=== PATIENT | female | born 1995 | race Caucasian/White ===

== ENCOUNTER 2020-10-27 14:57 | Outpatient (REF) | payer BC, SELFPAY ==
[2020-10-28 02:21] LABS: CT PCR NOT DETECTED (Not Detect.); NG PCR NOT DETECTED (Not Detect.)
== END 2020-10-27 14:58 | disposition home or self-care (01) ==
LOC: HO.LAB 14:57
PROVIDERS: Visit Provider Advanced Practice Midwife
DX: Z11.3 Encounter for screening for infections with a predominantly sexual mode of transmission (principal); Z20.2 Contact with and (suspected) exposure to infections with a predominantly sexual mode of transmission
CPT/HCPCS: 87491; 87591

== ENCOUNTER 2021-06-09 15:06 | Outpatient (REF) | payer OTHER, SELFPAY ==
[2021-06-10 08:58] LABS: BV Int Neg Control Negative (Negative); BV Int Pos Control Positive (Positive)
[2021-06-10 10:53] LABS: CT PCR NOT DETECTED (Not Detect.); NG PCR NOT DETECTED (Not Detect.)
== END 2021-06-09 15:07 | disposition home or self-care (01) ==
LOC: HO.LAB 15:06
PROVIDERS: Visit Provider Advanced Practice Midwife
DX: Z01.419 Encounter for gynecological examination (general) (routine) without abnormal findings (principal); B37.3 Candidiasis of vulva and vagina; Z20.2 Contact with and (suspected) exposure to infections with a predominantly sexual mode of transmission
CPT/HCPCS: 87480; 87491; 87510; 87591; 87660

== ENCOUNTER 2021-10-31 15:18 | Outpatient (REF) | payer OTHER, SELFPAY ==
[2021-11-01 05:34] LABS: CT PCR NOT DETECTED (Not Detect.); NG PCR NOT DETECTED (Not Detect.)
[2021-11-01 13:12] LABS: BV Int Neg Control Negative (Negative); BV Int Pos Control Positive (Positive)
== END 2021-10-31 15:19 | disposition home or self-care (01) ==
LOC: HO.LAB 15:18
PROVIDERS: Visit Provider Advanced Practice Midwife
DX: Z01.419 Encounter for gynecological examination (general) (routine) without abnormal findings (principal); Z20.2 Contact with and (suspected) exposure to infections with a predominantly sexual mode of transmission; N89.8 Other specified noninflammatory disorders of vagina
CPT/HCPCS: 87480; 87491; 87510; 87591; 87660; 88142

== ENCOUNTER 2022-11-02 15:27 | Outpatient (REF) | payer OTHER, SELFPAY ==
[2022-11-03 01:10] LABS: CT PCR NOT DETECTED (Not Detect.); NG PCR NOT DETECTED (Not Detect.)
== END 2022-11-02 15:28 | disposition home or self-care (01) ==
LOC: HO.LNP 15:27
PROVIDERS: PCP Radiology Diagnostic Radiology; Visit Provider Advanced Practice Midwife
DX: Z20.2 Contact with and (suspected) exposure to infections with a predominantly sexual mode of transmission (principal)
CPT/HCPCS: 0353U

== ENCOUNTER 2024-01-03 09:49 | Outpatient (REF) | payer OTHER, SELFPAY ==
[2024-01-04 05:14] LABS: CT PCR NOT DETECTED (Not Detect.); NG PCR NOT DETECTED (Not Detect.)
[2024-01-04 11:36] LABS: Bacterial Vaginosis PCR POSITIVE (Negative); Candida Group PCR NOT DETECTED (Not Detect); Candida glab krusei PCR NOT DETECTED (Not Detect); Trichomonas vaginalis PCR NOT DETECTED (Not Detect)
== END 2024-01-03 09:50 | disposition home or self-care (01) ==
LOC: HO.LAB 09:49
PROVIDERS: PCP Radiology Diagnostic Radiology; Visit Provider Advanced Practice Midwife
DX: N89.8 Other specified noninflammatory disorders of vagina (principal); Z20.2 Contact with and (suspected) exposure to infections with a predominantly sexual mode of transmission
CPT/HCPCS: 0352U; 87491; 87591

== ENCOUNTER 2024-01-03 09:49 | Outpatient (AMB) | payer OTHER, SELFPAY ==
[2024-01-03 10:00] VITALS: BP 110/60; BMI 28.6
--- NOTE | 2024-01-03 10:00 | MHC.OFFVIS ---
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: No Information Interpreted: clinical only Stripe Marker: Stripe Marker Present Allergies No Known Allergies Allergy (Verified 01/03/24 10:01) salmon Allergy (Unknown, Uncoded 01/03/24 10:01) Unknown Medication List - Last Reconciled 01/03/24 by Shena Holliday CNM drospirenone-ethinyl estradiol 3-0.02 mg (Estelle (28)) TAKE 1 TABLET BY MOUTH EVERY DAY hydroxyzine HCl 10 mg PO TID PRN Is last menstrual period known: Yes Last menstrual period: 12/08/23 Do you need a note to return to daycare/school/sports/work: No HPI HPI 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 She normally sees Julia. She cites a long-term history of recurrent BV that she has reviewed many times in the past with Julia. She currently is following a regimen of treating when she feels she needs to or possibly weekly with boric acid capsules but she notices it recurs if she is not diligent about this she has very aware allowing air to her vulva she does not over use panty liners accept the day after the boric acid. She does not spend a lot of time in Spandex she wears either cotton or loose flowing clothes. It does not seem necessarily to be related to sexual activity though it started to occur more some years back in her history. She is on various methods of control in the past but has done best on these particular control pills but looks forward to when she can be without them but does not particularly plan on having a baby for the next 5 years she and her boyfriend just got engaged. 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 She works out though ?nothing crazy in the summer . COUNT INCLUDES THE [facility] Social History (Reviewed 01/03/24 @ 10:03 by Tony Pearson [facility]) Alcohol intake: current Alcohol intake frequency: a few times a month Patient Tobacco Use Status: Never used Tobacco Substance Use Type: Marijuana Sexual orientation: Straight/Heterosexual Gender identity: Female Female Reproductive History Menstrual Age of Menarche: 12 Duration of menses: 3-5 days Date of last menstrual period: 12/08/23 control method: pills Total pregnancies: 0 Date of last pap smear: 11/01/21 (negative) History of abnormal pap smear: No Physical Exam Vital Signs: Last Vital Signs BP 110/60 01/03/24 10:00 BMI result Body Mass Index 28.6 Const General: healthy appearing, comfortable, no acute distress, well developed and alert Nutritional Appearance: average body habitus Orientation/consciousness: patient oriented x3 Limitations: no limitations HEENT Head: Yes normocephalic Neck Neck: Yes normal visual inspection Chest Chest palpation & inspection: normal inspection of the chest Breast/axilla inspection: normal inspection of the breasts and normal inspection of the axillae Breast/axilla palpation: normal palpation of the breasts and normal palpation of the axillae Resp Effort & Inspection: normal respiratory effort GI Inspection: Yes normal to inspection, No Abdominal wall edema and No distended Palpation (GI): Soft to palpation and nontender Other: Limits vagina is and moist there is a normal whitish clearish heterogeneous discharge consistent with OCP use or 2nd half of menstrual cycle. Does not appear consistent with BV at this time cervix is nulliparous pink smooth mobile nontender extremely posterior uterus midposition to anteverted nontender not enlarged adnexa nontender not enlarged extremely good muscle tone. General: Yes bladder normal to palpation External Female Exam: normal external appearance and normal appearance of the urethra Speculum Exam - Vagina: normal appearance of the vagina, normal palpation and normal vaginal discharge Speculum Exam - Cervix: normal appearance of the cervix, normal palpation and nontender Bimanual exam- vagina & uterus: normal bimanual exam, normal palpation, uterine size normal, bladder normal to palpation, consistency normal, normal palpation, uterine mobility normal, uterine shape normal, No Cervical tenderness present, non-tender and no cervical motion tenderness Bimanual Exam- Adnexa, other: normal adnexae, no masses, normal and No adnexal tenderness Neuro General: patient oriented x3 Assessment & Plan Assessment & Plan (1) Vaginal discharge: Comment: Cites recurrent BV currently best managed weekly boric acid capsules. Code(s): N89.8 - Other specified noninflammatory disorders of vagina Category: Medical (2) Cervical cancer screening: Code(s): Z12.4 - Encounter for screening for malignant neoplasm of cervix Category: Medical (3) Well woman exam: Code(s): Z01.419 - Encounter for gynecological examination (general) (routine) without abnormal findings Category: Medical (4) control counseling: Comment: Wishes to continue on the OCP she is on -renewed for 1 more year. Code(s): Z30.09 - Encounter for other general counseling and advice on contraception Category: Medical Plan -----Discussed in this visit the following: healthy balanced diet, regular and consistent exercise, getting recommended health screens, doing the best she can for her particular health concerns, kegel exercises, pap smear screening and followup recommendations, mammography screening and SBE, normal changes in cycles in her life stage--- .----I reviewed available options for Control Methods and their associated side effect profiles. In particular, we discussed the method most of interest to her. ---Discussed the current research around the phenomena of bacterial vaginosis, and the many factors involved in the increase and change in the prevalence of certain bacteria in the vagina, that contribute to the clingy discharge, the fishy malodor, and the discomfort, that many women experience very frequently in their lives. Discussed the many factors that can promote it, and current thinking about best options for treatment of both the a 1 time episode, or frequently occurring episodes. Discussed the role of partner condom use. Discussed that previously, treatment was recommended for both partners, but is not currently recommended today . Discussed the testing involved. Discussed treatment options including Flagyl, metronidazole gel, boric acid capsules and others. Reviewed all that she is doing and also the challenge of over diagnosis. Discussed that the presence of Gardnerella does not necessarily in another itself need to be treated as BV but only when she has symptoms. Reviewed again with the symptoms would entail. She is doing the very best she can she does not think ejaculation has anything to do with it as it is not a frequent occurrence . My recommendation is to continue as she is doing as it seems to be working best for her reassured about her normal exam findings today which were completely within normal limits. Orders: Orders CT NG by PCR Today N89.8 - Other specified noninflammatory disorders of vagina, Z20.2 - Contact with and (suspected) exposure to infections with a predominantly sexual mode of transmission Bacterial Vaginosis Panel Today N89.8 - Other specified noninflammatory disorders of vagina Medications: New drospirenone-ethinyl estradiol 3-0.02 mg 1 tab PO DAILY 84 tabs 4RF Coding Level of Care Code Est Pt Prev Care [id number]([id number]) Diagnoses Vaginal discharge N89.8 Cervical cancer screening Z12.4 Well woman exam Z01.419 control counseling Z30.09
== END 2024-01-03 11:07 | disposition home or self-care (01) ==
LOC: HO.HWSM 09:49
PROVIDERS: PCP Radiology Diagnostic Radiology; Visit Provider Advanced Practice Midwife
DX: Z01.419 Encounter for gynecological examination (general) (routine) without abnormal findings (principal); N89.8 Other specified noninflammatory disorders of vagina; Z30.09 Encounter for other general counseling and advice on contraception
CPT/HCPCS: 99395